=== PATIENT | male | born 1950 | race Caucasian/White ===

== ENCOUNTER 2018-05-04 11:44 | Emergency (ER) | payer MEDICARE, SELFPAY ==
[2018-05-04 12:32] LABS: #Basophils 0.2 thou/uL (0.0-0.2); #Eosinphils 2.4 thou/uL (0.0-0.7); #Lymphocytes 2.3 thou/uL (1.20-3.40); #Monocytes 0.6 thou/uL (0.11-0.59); #Neutrophils 5.8 thou/uL (1.40-6.50); %Basophils 1.9 % (0.0-1.0); %Eosinophils 21.1 % (0.0-10.0); %Lymphocytes 20.7 % (21.0-51.0); %Monocytes 5.1 % (0.0-10.0); %Neutrophils 51.2 % (42.0-75.0); Hemoglobin 15.5 g/dL (14.0-18.0); INR-International Normal Ratio 1.4; Mean Corpuscular HGB CONC 33.8 g/dL (32.0-36.0); Mean Corpuscular Hemoglobin 30.4 pg (27.0-31.0); Mean Platelet Volume 7.2 fL (7.4-10.4); PTT 29.2 SEC (22.9-36.1); Platelet Count 286 thou/uL (130-400); Prothrombin Time 17.2 SEC (12.0-14.7); RBC Distribution Width 13.3 % (11.5-14.5); Red Blood Cell (RBC) Count 5.11 mill/uL (4.70-6.10); White Blood Cell (WBC) Count 11.3 thou/uL (4.8-10.8)
[2018-05-04 12:36] LABS: Anion Gap 16 mmol/L (10-20); BUN (Urea Nitrogen) 11 mg/dL (8.4-25.7); Calc. Creatinine Clearance 0 mL/min (70-130); Calcium 8.7 mg/dL (7.8-10.44); Carbon Dioxide 22 mmol/L (23-31); Chloride 100 mmol/L (98-107); Estimated GFR-MDRD 90; Glucose 109 mg/dL (80-115); Potassium 3.5 mmol/L (3.5-5.1); Sodium 134 mmol/L (136-145)
[2018-05-04] MEDS ORDERED: Lidocaine 1% w/Epinephrine 1:100K 30 ML VIAL ONE (12:58)
[2018-05-04] MEDS ORDERED: Bacitracin Zinc 1 Packet ONE (13:37)
== END 2018-05-04 13:45 | disposition home or self-care (01) ==
LOC: NAV ERS 11:44
DX: S81.812A Laceration without foreign body, left lower leg, initial encounter (principal); I11.0 Hypertensive heart disease with heart failure; I50.9 Heart failure, unspecified; F31.9 Bipolar disorder, unspecified; F41.9 Anxiety disorder, unspecified; Z79.82 Long term (current) use of aspirin; Z79.899 Other long term (current) drug therapy; W45.8XXA Other foreign body or object entering through skin, initial encounter
CPT/HCPCS: 12004; 80048; 85025; 85610; 85730; J2001

== ENCOUNTER 2018-05-09 19:25 | Emergency (ER) | payer MEDICARE ==
[2018-05-09] MEDS ORDERED: methylPREDNISolone Sod Succ/PF 125 MG/2 ML VIAL ONE (19:59)
[2018-05-09] MEDS ORDERED: Cephalexin 250 MG CAP ONE (19:59)
[2018-05-09] MEDS ORDERED: diphenhydrAMINE 50 MG/ML VIAL ONE (19:59)
== END 2018-05-09 20:20 | disposition home or self-care (01) ==
LOC: NAV ERS 19:25
DX: L03.116 Cellulitis of left lower limb (principal); R21 Rash and other nonspecific skin eruption; I11.0 Hypertensive heart disease with heart failure; I50.9 Heart failure, unspecified; I48.91 Unspecified atrial fibrillation; Z86.73 Personal history of transient ischemic attack (TIA), and cerebral infarction without residual deficits; F41.9 Anxiety disorder, unspecified; F31.9 Bipolar disorder, unspecified; F17.220 Nicotine dependence, chewing tobacco, uncomplicated; Z79.82 Long term (current) use of aspirin; Z79.899 Other long term (current) drug therapy; Z79.01 Long term (current) use of anticoagulants
CPT/HCPCS: 96372; J1200; J2930